=== PATIENT | female | born 1985 ===

== ENCOUNTER 2018-08-13 09:29 | Inpatient (IN) | payer MEDICAID ==
[2018-08-13 10:28] VITALS: BMI 27.6
[2018-08-13] MEDS ORDERED: Lactated Ringer's 1,000 ML IV ONE (11:32)
--- NOTE | 2018-08-13 11:40 | OBADHP ---
Datetime: 08/13/2018 10:05 Admit Comment, IP Provider: HPI: 32 YO with IUP at EGA 39 wks as per first trimester US, SHAYNA 08/20/18, who presents to [facility] after she noticed at 6AM today a vaginal gush of liquid mixed with blo od, patient states that after she started feeling pelvic pain with CONTX Q10 min x 30 seconds. Patien t states that after that first gush on fluid she has not noted whether she has continued with LOF. Lele mustafa endorses +FM. ROS: Unremarkable, except as per HPI. Patient also denies BAZAN, CP, SOB, Dysuria, fever, chills or o ther medical complaint at present. Care Provider: At [facility] O[facility]: Patient first was at term, as per patient no problems in previous or current . PMH: Denies FMH: None SocialHx: Denies Tobacco/ETOH/Rec drug use. SURG: None Allergies: NKA MEDS: Vit LABS: HIV neg, RPR neg. Rubella +. GBS POSITIVE on 07/24. ABO O+, ab neg. PE GEN: NAD, appears comfortable HEENT: NCAT RESP: CTA b/l CV: RRR, S1S2 present, no murmurs Abdomen: Gravid EXT: No edema Pelvic exam as per attending: Dil _4cm, speculum: no visible LOF A/P 32 YO with IUP at EGA 39 wks as per first trimester US, SHAYNA 08/20/18, presenting with possi ble ROM and early labor. Plan -Observation with monitoring of maternal VS -Monitor U CONTX -Ambulation with pad to monitor for LOF -FHR monitoring: noted in 140s range Case discussed with attending Dr Laci Fernandez MD PGY1 Addendum by Dr. Aguero: Patient evaluated independently and I agree with the above. Patient recheck and has made cervical change, now 560/-3, FHR = 145 mod azalia, +accels, contractions q 5-6 mins. Will admit patient for labor, questionable rupture of membranes. Will start PCN for GBS prophylaxis, all other routine admission orders. Re-evalaute as needed Lungs - PN: Normal Heart - PN: Normal HEENT - PN: Normal General - PN: Normal FHR - Baseline A Provider: 140 Comments, ACOG Physical Exam: see triage comments IP Hx Assessment: The History has been Reviewed and is Current Vital Signs Provider: Reviewed; Within Normal Limits IP Chief Complaint: Suspected ruptured membranes NICHD Variability Prov Fetus A: Moderate 6-25bpm NICHD Accel Fetus A IP Provider: [id number] FHR Category Provider Fetus A: Category I NICHD Decel Fetus A IP Provider: None Dilatation, Provider: 4 EGA AdmitDate IP: 39.0 IP Adm Impression: Term, intrauterine IP Admit Plan: Observation/Evaluation
[2018-08-13 11:49] VITALS: RESP 18
[2018-08-13] MEDS ORDERED: Lactated Ringer's 1,000 ML IV SCH ×2 (12:00→14:00)
[2018-08-13 12:13] LABS: BASO % 0.2 % (0.0-2.0); EOS % 0.2 % (0.0-4.0); HEMOGLOBIN 14.4 g/dL (12.0-16.0); LYMPH # 1.3 K/uL (1.0-4.3); LYMPH % 12.6 % (20.0-40.0); MEAN CELL VOLUME 90.3 fl (81.0-99.0); MEAN CORPUSCULAR HEMOGLOBIN 31.4 pg (27.0-31.0); MEAN CORPUSCULAR HGB CONC 34.8 g/dL (33.0-37.0); MEAN PLATELET VOLUME 8.9 fl (7.2-11.7); MONO # 0.4 K/uL (0.0-0.8); MONO % 3.9 % (0.0-10.0); NEUT # 8.6 K/uL (1.8-7.0); NEUT % 83.1 % (50.0-75.0); RBC 4.58 Mil/uL (3.80-5.20); RED CELL DISTRIBUTION WIDTH 12.8 % (11.5-14.5); WHITE BLOOD COUNT 10.3 K/uL (4.8-10.8)
[2018-08-13] MEDS ORDERED: Penicillin G 5 Million Unit Vial IVPB ONE (12:28)
[2018-08-13] MEDS ORDERED: Oxytocin 10 Units/ml Inj ONE (15:54)
[2018-08-13] MEDS ORDERED: Oxytocin 10 Units/ml Inj IM ONE (15:55)
[2018-08-13] MEDS ORDERED: Oxycodone/Acetaminophen 5/325 mg Tab PO PRN ×2 (15:59→18:26)
[2018-08-13] MEDS ORDERED: Benzocaine/Menthol SPRAY TOP PRN ×2 (15:59→18:26)
[2018-08-13] MEDS ORDERED: Oxytocin 30 UNIT in NS 500 ml 30 UNITS/500 ML BAG IV ONE (16:00)
[2018-08-13] MEDS ORDERED: OXYTOCIN/0.9 % NS 20 UNIT/1,000 ML BAG IV SCH (16:00)
--- NOTE | 2018-08-13 16:07 | OBDS ---
DELIVERY PERSONNEL Delivery Doctor: Radha Aguero MD Resident: Sharee Mann MD 9Resident) MATERNAL INFORMATION Delivery Anesthesia: None Medications in Delivery: Pitocin 10 units IM Estimated Blood Loss (ml): 200 Placenta Cultured: No Provider Comments: of live infant over intact perineum, in MIROSLAVA presentation, followed by should ers and rest of infant atraumatically, mouth and nose suctioned on mother's chest, cord clamped and c ut, infant handed off to waiting software requirements engineer, cord blood obtained, placenta delivered spontaneously, EBL = 50mL, no lacerations noted, pt tolerated procedure well LABOR SUMMARY EDC: 08/20/2018 00:00 No. Babies in Womb: 1 Attempted: No Labor Anesthesia: None LABOR INFORMATION Reason for Induction: Not Applicable Onset of Labor: 08/13/2018 05:30 Complete Dilatation: 08/13/2018 15:25 Oxytocin: N/A Group B Beta Strep: Positive Antibiotics # of Doses: Pen G 5 million units Antibiotics Time of Last Dose: 1230and 1425 MEMBRANES Membranes Rupture Method: Spontaneous Rupture of Membranes: 08/13/2018 15:25 Amniotic Fluid Color: Clear Amniotic Fluid Amount: Small Amniotic Fluid Odor: Normal STAGES OF LABOR Stage 1 hrs: 9 Stage 1 min: 55 VAGINAL DELIVERY Episiotomy: None PRESENTATION/POSITION BABY A Presentation: Cephalic
--- NOTE | 2018-08-13 19:56 | OBHP ---
Datetime: 08/13/2018 10:05 IP Adm Impression: Term, intrauterine IP Admit Plan: Observation/Evaluation Admit Comment, IP Provider: HPI: 32 YO with IUP at EGA 39 wks as per first trimester US, SHAYNA 08/20/18, who presents to [facility] after she noticed at 6AM today a vaginal gush of liquid mixed with blo od, patient states that after she started feeling pelvic pain with CONTX Q10 min x 30 seconds. Patien t states that after that first gush on fluid she has not noted whether she has continued with LOF. Lele mustafa endorses +FM. ROS: Unremarkable, except as per HPI. Patient also denies BAZAN, CP, SOB, Dysuria, fever, chills or o ther medical complaint at present. Care Provider: At [facility] OBGYN: Patient first was at term, as per patient no problems in previous or current . PMH: Denies FMH: None SocialHx: Denies Tobacco/ETOH/Rec drug use. SURG: None Allergies: NKA MEDS: Vit LABS: HIV neg, RPR neg. Rubella +. GBS POSITIVE on 07/24. ABO O+, ab neg. Gc/Cl NEG PE GEN: NAD, appears comfortable HEENT: NCAT RESP: CTA b/l CV: RRR, S1S2 present, no murmurs Abdomen: Gravid EXT: No edema Pelvic exam as per attending: Dil _4cm, speculum: no visible LOF A/P 32 YO with IUP at EGA 39 wks as per first trimester US, SHAYNA 08/20/18, presenting with possi ble ROM and early labor. Plan -Observation with monitoring of maternal VS -Monitor U CONTX -Ambulation with pad to monitor for LOF -FHR monitoring: noted in 140s range Case discussed with attending Dr Laci Fernandez MD PGY1 Addendum by Dr. Aguero: Patient evaluated independently and I agree with the above. Patient recheck and has made cervical change, now /-3, FHR = 145 mod azalia, +accels, contractions q 5-6 mins. Will admit patient for labor, questionable rupture of membranes. Will start PCN for GBS prophylaxis, all other routine admission orders. Re-evalaute as needed Lungs - PN: Normal Heart - PN: Normal HEENT - PN: Normal General - PN: Normal FHR - Baseline A Provider: 140 Comments, ACOG Physical Exam: see triage comments IP Hx Assessment: The History has been Reviewed and is Current EGA AdmitDate IP: 39.0 Vital Signs Provider: Reviewed; Within Normal Limits IP Chief Complaint: Suspected ruptured membranes NICHD Variability Prov Fetus A: Moderate 6-25bpm NICHD Accel Fetus A IP Provider: [id number] FHR Category Provider Fetus A: Category I NICHD Decel Fetus A IP Provider: None Dilatation, Provider: 4
[2018-08-14 06:44] LABS: BASO % 0.2 % (0.0-2.0); EOS % 0.1 % (0.0-4.0); LYMPH % 15.5 % (20.0-40.0); MEAN CELL VOLUME 92.9 fl (81.0-99.0); MEAN CORPUSCULAR HEMOGLOBIN 31.3 pg (27.0-31.0); MEAN CORPUSCULAR HGB CONC 33.7 g/dL (33.0-37.0); MEAN PLATELET VOLUME 8.7 fl (7.2-11.7); MONO # 0.5 K/uL (0.0-0.8); NEUT # 10.4 K/uL (1.8-7.0); NEUT % 80.2 % (50.0-75.0); NRBC % 0.1 % (0.0-0.0); RBC 4.15 Mil/uL (3.80-5.20); RED CELL DISTRIBUTION WIDTH 12.9 % (11.5-14.5)
--- NOTE | 2018-08-14 09:17 | OBPPN ---
Datetime: 08/14/2018 05:27 PP Pain Prov: Within normal limits PP Nausea Prov: Denies PP Flatus Prov: Yes PP BM Prov: Yes PP Breasts Prov: Not Done PP Heart Prov: Normal PP Lungs Prov: Normal PP Abdomen/Uterus Prov: Normal PP Lochia Prov: Normal PP Vulva/Perineum Prov: Not Done PP CVA Tenderness Prov: Normal PP Extremities Prov: Normal PP C/S Incision Prov: Not Applicable PP Progress Prov: Normal PP Comments Phys Exam Prov: See note PP Impression Prov: Normal progression PP Plan Prov: Continue present management PP Progress Note Prov: Pt is a 32 YO , PPD 1 s/p on 08/13/18. Patient was Seen and examined at bedside. No complaints today, pain controlled. Patient is ambulating to bathroom. She have passed flatus and BM yet . She is tolerating regular diet. Lochia less than menses in volume. Pt concerned i f baby is feeding well with breast, but she report using both bottle and breast for now. Denies feve rs, chills, dizziness, chest pain, SOB, N/V/D, hematuria or dysuria. VS: wnl Gen: NAD HEENT: NCAT Cardio: + S1S2, RRR Lungs: CTA B/L, no wheezes Abd: soft, appropriate tenderness to palpation, + BS, Uterus firm below level of umbilicus Ext: No edema, calves non tender Assessment: Pt is a 32 YO , PPD 1 s/p on 08/13/18 with normal progression. Plan: - and ambulation encouraged. - Ibuprofen 600 mg 1 tab Q 6h PRN mild pain -Acetaminophen 650 PO Q6h PRN pain -Continue vitamin -Patient will be discharged on discussed with attending Hammad PGY1 The patient was seen with the resident I agree with the note Vital Signs Provider PP: Reviewed; Within Normal Limits
--- NOTE | 2018-08-15 07:38 | OBPPN ---
Datetime: 08/15/2018 05:57 PP Pain Prov: Within normal limits PP Nausea Prov: Denies PP Flatus Prov: Yes PP BM Prov: Yes PP Breasts Prov: Not Done PP Heart Prov: Normal PP Lungs Prov: Normal PP Abdomen/Uterus Prov: Normal PP Lochia Prov: Normal PP Vulva/Perineum Prov: Normal PP CVA Tenderness Prov: Normal PP Extremities Prov: Normal PP C/S Incision Prov: Not Applicable PP Progress Prov: Normal PP Comments Phys Exam Prov: See note PP Impression Prov: Normal progression PP Plan Prov: Discharge PP Progress Note Prov: Pt is a 32 YO , PPD 2 s/p on 08/13/18. Pt Seen and examined at [facility]. No complaints today, pain controlled. Ambulate. She have passed flatus and BM. She is tolerating r egular diet. Lochia less than menses in volume. Denies fevers, chills, dizziness, chest pain, SOB, N /V/D, hematuria or dysuria. VS: wnl Gen: NAD HEENT: NCAT Cardio: + S1S2, RRR Lungs: CTA B/L, no wheezes Abd: soft, appropriate tenderness to palpation, + BS, Uterus firm below level of umbilicus Ext: No edema, calves non tender Assessment: Pt is a 32 YO , PPD 2 s/p on 08/13/18 with normal progression. Plan: - and ambulation encouraged. - Ibuprofen 600 mg 1 tab Q 6h PRN mild pain -Continue vitamin -Patient will be discharged today Archie PGY1 Case discussed with attending OB Hospitalist Addenum: Pt seen and examined. Agree w/ above. PPD 2 s/p , doing well, breast and bottle feeding. Discharge home today. (ES) Vital Signs Provider PP: Reviewed; Within Normal Limits
[2018-08-15 15:37] VITALS: BP 111/66; PULSE 82; TEMP 98.2; O2SAT 97
== END 2018-08-15 11:35 | disposition home or self-care (01) | DRG 560 ==
LOC: H.EROB2 09:29 → H.L&D 11:32 → H.OB/GYN 17:30
PROVIDERS: ADMIT Obstetrics & Gynecology; ATTEND Obstetrics & Gynecology
PROC: 10E0XZZ Delivery of Products of Conception, External Approach (ICD-10-PCS; principal; 2018-08-13)
PROC: 4A1HXCZ Monitoring of Products of Conception, Cardiac Rate, External Approach (ICD-10-PCS; 2018-08-13)
DX: O80 Encounter for full-term uncomplicated delivery (principal); Z37.0 Single live birth; Z3A.39 39 weeks gestation of pregnancy